=== PATIENT | female | born 1940 | race Caucasian/White ===

== ENCOUNTER 2019-05-21 12:13 | Emergency (ER) | payer MEDICARE, OTHER ==
[~2019-05-21] VITALS: Ht 154.9 cm; Wt 49.9 kg
[~2019-05-21 12:13] MED LIST: [UNRECOGNIZED DRUG - OTHER] MT
[2019-05-21] MEDS ORDERED: ACETAMINOPHEN 325 MG TAB ONE (12:34)
[2019-05-21] MEDS ORDERED: ACETAMINOPHEN 325 MG TAB PO ONE (12:45)
--- NOTE | 2019-05-21 13:26 | Diagnostic Imaging Report ---
CT BRAIN [facility] HISTORY: Fall COMPARISON: None. Technique: Noncontrast axial scans were obtained from skull base to the vertex. Coronal and sagittal reconstructions obtained from the axial data. One or more of the following dose reduction techniques were used: Automated exposure control, adjustment of the mA and/or kV according to patient size, and/or utilization of iterative reconstruction technique. DISCUSSION: Scalp/Skull: Unremarkable. Brain sulci: Mildly prominent. Ventricles: Compensatory dilatation. Extra-axial spaces: No masses or fluid collections. Carotid siphon calcifications are present. Parenchyma: Small dystrophic calcification in the right adhikari radiata is present. Mild bilateral deep white matter hypodensity is likely chronic microvascular ischemic change. Otherwise, no masses, hemorrhage, or large vascular territory acute infarct. Dural sinuses: No abnormal densities. Sellar/Suprasellar region: Intact. Skull base: Intact. Incidental findings: Minimal scattered paranasal sinus mucosal thickening. IMPRESSION: 1. No acute intracranial abnormalities. 2. Mild supratentorial chronic microvascular ischemic change. Mild generalized cerebral volume loss. 3. Small right adhikari radiata calcification may be related to remote infection/inflammation or cavernous malformation. Signed by: Dr. Sebastian Coronel M.D. on 05/21/2019 1:24 PM
[2019-05-21] MEDS ORDERED: TETANUS/DIPHTHERIA TOX ADULT 0.5 ML SYR IM ONE (13:30)
--- NOTE | 2019-05-21 13:31 | Diagnostic Imaging Report ---
CT MAX/FACPARANASA [facility] HISTORY: Fall COMPARISON: None. TECHNIQUE: Axial CT images through the face were obtained without contrast. Coronal/sagittal reformations were created. One or more of the following dose reduction techniques were used: Automated exposure control, adjustment of the mA and/or kV according to patient size, and/or utilization of iterative reconstruction technique. DISCUSSION: Left submental subcutaneous fat stranding is present. A few punctate cutaneous hyperdensities in this region may be foreign bodies/debris. Minimally displaced bilateral nasal bone and maxillary frontal process fractures may be old. Small cerclage wire is seen along the left nasal bone. Otherwise, no acute fracture is seen. There are mild to moderate degenerative changes throughout the spine. The orbits are intact. Intraorbital contents are grossly unremarkable. There is minimal scattered bilateral paranasal sinus mucosal thickening. Otherwise, the visualized soft tissues are grossly unremarkable. IMPRESSION: 1. Minimally displaced bilateral nasal bone and maxillary frontal process fractures may be old. Small cerclage wire is seen along the left nasal bone. 2. Otherwise, no acute osseous abnormality. 3. Left submental subcutaneous fat stranding; a few punctate cutaneous hyperdensities in this region may be foreign bodies/debris. Signed by: Dr. Sebastian Coronel M.D. on 05/21/2019 1:29 PM
[2019-05-21] MEDS ORDERED: TETANUS/DIPHTHERIA TOX ADULT 0.5 ML SYR ONE (13:37)
--- NOTE | 2019-05-21 13:47 | Diagnostic Imaging Report ---
EXAMINATION: CXR 1 W - HOP INDICATION: Trauma COMPARISON: None FINDINGS: LINES/TUBES:None LUNGS:The lungs are mildly hyperinflated. Biapical pleural parenchymal thickening/scarring. No focal consolidation or pulmonary edema. Subcentimeter right lower lobe calcified granuloma. PLEURA:No pleural effusion or pneumothorax. MEDIASTINUM:The cardiomediastinal silhouette appears normal in size and shape. Atherosclerotic calcifications of the thoracic aorta. BONES/SOFT TISSUES:No acute osseous injury. ABDOMEN:No free air under the diaphragm. IMPRESSION: Mildly hyperinflated lungs. No focal pneumonia or pulmonary edema. Signed by: Hardeep Carrion MD on 05/21/2019 1:44 PM
[2019-05-21] MEDS ORDERED: AZITHROMYCIN250 MG PO (14:04)
[2019-05-21 14:05] VITALS: BP 137/88
== END 2019-05-21 14:12 | disposition home or self-care (01) ==
LOC: FSED 12:13
DX: R55 Syncope and collapse (principal); S01.81XA Laceration without foreign body of other part of head, initial encounter; W01.0XXA Fall on same level from slipping, tripping and stumbling without subsequent striking against object, initial encounter; Y92.008 Other place in unspecified non-institutional (private) residence as the place of occurrence of the external cause
CPT/HCPCS: 70450; 70486; 71045; 80053; 83518; 85025; 87400; 90471; 90714; 93005; 99284

== ENCOUNTER 2019-09-30 10:00 | Outpatient (RCR) | payer MEDICARE, OTHER ==
[~2019-09-30 10:00] MED LIST changes: +AZITHROMYCIN250 MG PO
== END 2019-10-01 ==
LOC: PT 10:00
PROVIDERS: ATTEND Specialist
DX: S32.050A Wedge compression fracture of fifth lumbar vertebra, initial encounter for closed fracture (principal); M54.5 Low back pain; M62.81 Muscle weakness (generalized); R26.2 Difficulty in walking, not elsewhere classified; M53.86 Other specified dorsopathies, lumbar region

== ENCOUNTER 2019-10-30 11:57 | Outpatient (RCR) | payer MEDICARE, OTHER ==
--- NOTE | 2019-10-23 17:43 | NUR ---
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 Pt reported h/o GERD. No other significant past medical history provided. Pt stated that her voice has become increasingly hoarse with decreased volume over the past few months. When asked, pt agreed that she frequently clears her throat, wakes up with a sour taste in her mouth, occasionally chokes on food and liquids, has a globus sensation, and experiences vocal fatigue. 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 She stated that her throat often feels tight and tense. She denied consumption of caffeine and does not smoke. Pt does not take medications for reflux but instead has a holistic medicine approach and uses licorice to control her reflux. Pt Goal: to sound normal again. Laryngeal Examination: Pt appears to have larynx at midline with unrestricted movement and normal elevation. Minimal muscle tension was noted in the laryngeal area, glossal area, and the sternocleidomastoid area. Gentle palpation of temples, jaw, shoulders, neck, strap muscles, and larynx resulted in no discomfort or pain. Hearing: Appeared to be WFL. Objective Measurements: Average Range Normal Sustained Vowel 71 dB 70-71 dB 80 dB High/Low Frequency High: 361 Hz Lo: 208 Hz 218-361 Hz 150-350 Hz Max Sustained Phonation 2.5 seconds 1-2 seconds 10-20 seconds Perceptual Measure: Ms. Mooney feels her vocal quality is consistently scratchy with low volume. When fatigued she must strain to produce a voice loud enough for others to understand. 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 Oral Motor Exam: An oral motor speech exam revealed structures and function of speech mechanism to be WFL. Education: Ms. Mooney was educated regarding basic anatomy and physiology of the vocal cords. Vocal hygiene and reflux precautions were reviewed in extensive detail. Treatment/Stimulability: When cued, Ms. Mooney increased her vocal loudness in conversation from 64 dB to 70 dB. Various techniques to alter the way Ms. Mooney used her voice were attempted to assess for improved vocal quality and stimulability to therapeutic stimuli. Pt demonstrated good stimulability and was able to produce vowel sounds with clear vocal quality. Treatment techniques were introduced and home program assigned. Impressions: Ms. 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 This disorder decreases her ability to participate in activities of daily living, activities she enjoys, and her occupation. It also decreases her quality of life. Ms. Mooney would benefit from voice therapy to improve functional use of voice for improved vocal quality. Prognosis: Favorable for improved vocal quality secondary to a high level of motivation to improve and good stimulability to produce clear vocal quality in isolated vowel sounds. Recommendations: 1. Voice therapy 1/week X 4 weeks 2. Vocal hygiene program Book Jogger Goal(s): Patient will restore vocal quality to perform functional demands of conversational and professional speech. Short Term Goals: 1. Pt will follow vocal hygiene recommendations with independence for improvement in vocal fold health for vocalization. 2. Pt will implement gentle use of voice with easy onset exercises with independence. 3. Pt will complete exercises to increase loudness of speech without compromising functional and appropriate use of vocal cords with independence. 4. Pt will complete home exercise program of stretches and practice of therapeutic stimuli with independence. 5. Pt will improve maximum phonation time to 10 seconds. 6. Pt will increase sustained ah to an average of 80 dB while maintaining good vocal quality. Thank you for including me in the care of your patient. Please do not hesitate to contact me at [phone] should you have any questions regarding this evaluation or the plan of care. Radha Archibald M.A. CCC-HEADMASTER/MISTRESS Date of Session: 10/23/19 Analysis of Voice and Resonance X 63 minutes NOMS Voice Level 4
== END 2019-11-01 ==
LOC: PT 11:57
PROVIDERS: ATTEND Specialist
DX: R49.0 Dysphonia (principal); S32.050A Wedge compression fracture of fifth lumbar vertebra, initial encounter for closed fracture; M62.81 Muscle weakness (generalized); R26.2 Difficulty in walking, not elsewhere classified; M54.5 Low back pain

== ENCOUNTER 2019-11-13 12:06 | Outpatient (RCR) | payer MEDICARE, OTHER ==
[2019-11-22] MEDS ORDERED: ARMOUR THYROID60 MG PO (04:27)
[2019-11-23] MEDS ORDERED: AMLODIPINE BESYL5 MG PO (17:52)
== END 2019-12-02 ==
LOC: PT 12:06
PROVIDERS: ATTEND Specialist
DX: S32.050D Wedge compression fracture of fifth lumbar vertebra, subsequent encounter for fracture with routine healing (principal); M54.5 Low back pain; M62.81 Muscle weakness (generalized); R26.2 Difficulty in walking, not elsewhere classified
CPT/HCPCS: 97139

== ENCOUNTER 2019-11-21 18:22 | Observation (INO) | payer MEDICARE, OTHER ==
[~2019-11-21] VITALS: Ht 154.9 cm; Wt 45.4 kg
[2019-11-21] MEDS ORDERED: LABETALOL HCL 5 MG/ML 20ML VIAL IV STA (19:06)
[2019-11-21] MEDS ORDERED: LABETALOL HCL 0 ML ONE (19:29)
[2019-11-21] MEDS ORDERED: LABETALOL HCL 20 ML ONE (19:30)
--- OUTSIDE RECORDS SUMMARY | 2019-11-21 19:56 | XMS REPORT | Continuity of Care Document ---
Author Author [facility] t Organization [facility] Address [address] [place] [address] Phone Unavailable Care Team Providers Care Prompt Care Rn Name Role Phone CAYETANO BAY, MD CAN PCP COREY HARRIS Unavailable Payers Payer Name Policy Type Policy Number Effective Date Expiration Date S ernie [employer] Medicare Sup [id number] 2018 00:00:00 [facility] Medicare A & B [id number] 2006 00:00:00 [facility] Problems Condition Name Condition Details Condition Category Status Onset Date Resolution Date Last Treatment Date Treating Clinician Comments Source Problem Condition Active [facility] Hypothyroidism Hypo thyroidism Active 05/29/2013 [facility] Problem Active 2013-05-29 17:14:08 M maura Gamble Allergies, Adverse Reactions, Alerts Allergy Name Allergy Type Status Severity Reaction(s) Onset Date Inacti ve Date Treating Clinician Comments Source Not Known Not Known Active Eddie Gamble Family History Family Member Diagnosis Comments Start Date Stop Date Source Unknown Family Member Family History 2013-05-29 17:14:08 2 17:14:08 Poli Gamble Social History Social Habit Start Date Stop Date Quantity Comments Source Social History 2013-05-29 17:14:08 2013-05-29 17:14:08 Poli Gamble Sex Assigned At 1940 00:00:00 1940 00:00:00 Female [facility] Medications Ordered Medication Name Filled Medication Name Start Date Stop Da te Current Medication? Ordering Clinician Indication Dosage Frequency Signature (SIG) Comments Components Source Azithromycin (Z-Milan) 250 Mg TABLET Azithromycin (Z-Milan) 250 Mg TABLET 2019-05-21 13:04:00 Yes 1 As Directed [facility] Nature Thyroid 65 MG TABS 2013-05-29 17:14:08 Yes (Active) Poli Gamble Thyroid,Pork (Nature-Throid) 65 Mg TABLET Thyroid,Pork (Nature-Throid) 65 Mg TABLET Yes .5 Daily [facility] Vital Signs Vital Name Observation Time Observation Value Comments Source Body Temperature 2019-05-21 13:05:00 98.0 [degF] [facility] Procedures Procedure Date / Time Performed Performing Clinician Sourc e RPR F/E/E/N/L/M 2.6-5.0 CM 2019-05-21 00:00:00 [facility] Encounters Start Date/Time End Date/Time En[facility] Encounter ID Source 2019-10-30 11:57:00 2019-11-01 23:59:00 Discharged Recurring [facility] [id number] [facility] 2019-09-13 08:05:00 2019-10-01 23:59:00 Discharged [facility] [id number] [facility] 2019-05-21 11:13:00 2019-05-21 13:12:00 Departed Emergency Room 1 COREY HARRIS [facility] [id number] CH I [facility] 2013-05-29 11:14:09 2013-05-29 11:14:08 Outpatient IE IE [id number] Results Test Description Test Time Test Comments Results Result Comments Source CXR 1 VEW - HOPD 2019-05-21 13:43:00 [facility] [address] [place] [address] Patient Name: VAL ALAS MR #: [id number] : 1940 Age/Sex: 79/F Req #: [id number] Adm Physician: Ordered by: COREY HARIRS MD Report #: [id number] Location: [facility] Room/Bed: Procedure: [id number] [facility] Exam Date: 05/21/19 Exam Time: 1308 REPORT STATUS: Signed EXAMINATION: CXR 1 [facility] INDICATION: Trauma COMPARISON: None FINDINGS: LINES/TUBES:None LUNGS:The lungs are mildly hyperinflated. Biapical pleural parenchymal thickening/scarring. No focal consolidation or pulmonary edema. Subcentimeter right lower lobe calcified granuloma. PLEURA:No pleural effusion or pneumothorax. MEDIASTINUM:The cardiomediastinal silhouette appears normal in size and shape. Atherosclerotic calcifications of the thoracic aorta. BONES/SOFT TISSUES:No acute osseous injury. ABDOMEN:No free air under the diaphragm. IMPRESSION: Mildly hyperinflated lungs. No focal pneumonia or pulmonary edema. Signed by: Brendon Quijano MD on 05/21/2019 1:44 PM Dictated By: BRENDON QUIJANO MD 1344 Transcribed By: JOE on 05/21/19 1344 COPY TO: COREY HARRIS MD CT [facility] 2019-05-21 13:24:00 [place] [address] Patient Name: VAL ALAS MR #: [id number] : 1940 Age/Sex: 79/F Req #: [id number] Adm Physician: Ordered by: COREY HARRIS MD Report #: [id number] Location: [facility] Room/Bed: Procedure: [id number] HOPD/CT MAX/FACPARANASA SIN WO-HOPD Exam Date: 05/21/19 Exam Time: 1308 REPORT STATUS: Signed CT MAX/FACPARANASA SIN WO- HOPD HISTORY: Fall COMPARISON: None. TECHNIQUE: Axial CT images through the face were obtained without contrast. Coronal/sagittal reformations were created. One or more of the following dose reduction techniques were used: Automated exposure control, adjustment of the mA and/or kV according to patient size, and/or utilization of iterative reconstruction technique. DISCUSSION: Left submental subcutaneous fat stranding is present. A few punctate cutaneous hyperdensities in this region may be foreign bodies/debris. Minimally displaced bilateral nasal bone and maxillary frontal process fractures may be old. Small cerclage wire is seen along the left nasal bone. Otherwise, no acute fracture is seen. There are mild to moderate degenerative changes throughout the spine. The orbits are intact. Intraorbital contents are grossly unremarkable. There is minimal scattered bilateral paranasal sinus mucosal thickening. Otherwise, the visualized soft tissues are grossly unremarkable. IMPRESSION: 1. Minimally displaced bilateral nasal bone and maxillary frontal process fractures may be old. Small cerclage wire is seen along the left nasal bone. 2. Otherwise, no acute osseous abnormality. 3. Left submental subcutaneous fat stranding; a few punctate cutaneous hyperdensities in this region may be foreign bodies/debris. Signed by: Dr. Sebastian Coronel M.D. on 05/21/2019 1:29 PM Dictated By: SEBASTIAN CORONEL MD 1329 Transcribed By: JOE on 05/21/19 1329 COPY TO: COREY HARRIS MD CT BRAIN WO-HOPD 2019-05-21 13:21:00 [place] [address] Patient Name: VAL ALAS MR #: [id number] : 1940 Age/Sex: 79/F Req #: [id number] [facility] Physician: Ordered by: COREY HARRIS MD Report #: [id number] Location: [facility] Room/Bed: Procedure: [id number] HOPD/CT BRAIN WO-HOPD Exam Date: 05/21/19 Exam Time: 1308 REPORT STATUS: Signed CT BRAIN WO-HOPD HISTORY: Fall COMPARISON: None. Technique: Noncontrast axial scans were obtained from skull base to the vertex. Coronal and sagittal reconstructions obtained from the axial data. One or more of the following dose reduction techniques were used: Automated exposure control, adjustment of the mA and/or kV according to patient size, and/or utilization of iterative reconstruction technique. DISCUSSION: Scalp/Skull: Unremarkable. Brain sulci: Mildly prominent. Ventricles: Compensatory dilatation. Extra-axial spaces: No masses or fluid collections. Carotid siphon calcifications are present. Parenchyma: Small dystrophic calcification in the right adhikari radiata is present. Mild bilateral deep white matter hypodensity is likely chronic microvascular ischemic change. Otherwise, no masses, hemorrhage, or large vascular territory acute infarct. Dural sinuses: No abnormal densities. Sellar/Suprasellar region: Intact. Skull base: Intact. Incidental findings: Minimal scattered paranasal sinus mucosal thickening. IMPRESSION: 1. No acute intracranial abnormalities. 2. Mild supratentorial chronic microvascular ischemic change. Mild generalized cerebral volume loss. 3. Small right adhikari radiata calcification may be related to remote infection/inflammation or cavernous malformation. Signed by: Dr. Sebastian Coronel M.D. on 05/21/2019 1:24 PM Dictated By: SEBASTIAN CORONEL MD 1324 Transcribed By: JOE on 05/21/19 1324 COPY TO: COREY HARRIS MD
--- OUTSIDE RECORDS SUMMARY | 2019-11-21 19:56 | XMS REPORT | Continuity of Care Document ---
Author Author [facility] Organization [employer] Address Unknown Phone Unavailable Care Team Providers Care Equipment Validation Engineer Name Role Phone Keep[employer] Information [employer] Unavailable Un available Problems Problem Status Onset Date Classification Date Reported Comments Source Hypothyroidism Active 05/29/2013 [facility] Medications Medication Details Route Status Patient Instructions Ordering Provider Order Date Source Nature Thyroid 65 MG TABS (Ac tive) Active [facility] Allergies, Adverse Reactions, Alerts Substance Category Reaction Severity Reaction type Status Date Reported Comments Source Not Known [facility] Immunizations No Data Provided for This Section Results No Data Provided for This Section Pathology Reports No Data Provided for This Section Diagnostic Reports No Data Provided for This Section Consultation Notes No Data Provided for This Section Discharge Summaries No Data Provided for This Section History and Physicals No Data Provided for This Section Vital Signs No Data Provided for This Section Encounters Location Location Details Encounter Type Encounter Number Reason For Visit Attending Provider ADM Date DC Date Status Source AUDIT [id number] 05/29/2013 05/29/2013 [facility] Procedures No Data Provided for This Section Assessment and Plan No Data Provided for This Section Plan of Care No Data Provided for This Section Social History Social History Date Source Marital History - (Active ) Never A Smoker (Active) Never Drank Alcohol (Active) Occupation: Retired (Active) 05/29/2013 [facility] Family History Value Date S ource Maternal history of Hypertension (V17.49 ); (Active) Maternal history of Diabetes Mellitus (V18.0); (Active) Paternal history of Lung Cancer (V16.1); (Active) 05/29/2013 [facility] Advance Directives Order Name Results Value Date Source Advance Directives Advance Dir ectives No Advance Directives available. 05/29/2013 [facility] Functional Status No Data Provided for This Section
--- OUTSIDE RECORDS SUMMARY | 2019-11-21 19:56 | XMS REPORT ---
Author Author VAL Molina Organization Unknown Address Unknown Phone Care Team Providers Care Ornamental Metal Fabricator Apprentice Name Role Phone Pat Molina PP Reason for Referral No Reason for Referral was given. History of Present Illness No HPI available. Problems * Normal Routine History And Physical Senior Citizen (65-80) (V70.0); ( Active) * Hypothyroidism (244.9); (Active) Medication * Nature Thyroid 65 MG TABS; TAKE 1 TABLET DAILY. (Active) Allergies and Adverse Reactions * Not Known Past Medical History * History of Osteoporosis (733.00); (Resolved) * History of Anemia (285.9); (Resolved) * History of History Of 9 Previous Pregnancies (V61.5); (Resolved) * History of Vitamin B12 Deficiency (266.2); (Resolved) Procedures Procedure Procedure Date Date Completed Status Tonsillectomy With Adenoidectomy - - Resolved Appendectomy - - Resolved Cholecystectomy - - Resolved Hysterectomy - - Resolved Colon Surgery - - Resolved Family History * Maternal history of Hypertension (V17.49); (Active) * Maternal history of Diabetes Mellitus (V18.0); (Active) * Paternal history of Lung Cancer (V16.1); (Active) Social History * Marital History - (Active) * Never A Smoker (Active) * Never Drank Alcohol (Active) * Occupation: Retired (Active) Advance Directives * No Advance Directives available. Encounters * AUDIT 05/29/2013
--- NOTE | 2019-11-21 20:06 | Diagnostic Imaging Report ---
Exam: Head CT without contrast History: Blurry vision, headache Comparison studies: Head CT 05/21/2019 Technique: Axial images were obtained from the skull base to the vertex. Coronal and sagittal images reconstructed from the axial data. Dose modulation, iterative reconstruction, and/or weight based adjustment of the mA/kV was utilized to reduce the radiation dose to as low as reasonably achievable. Radiation dose: Total DLP: 969.14 mGy*cm. Estimated effective dose: DLP x 0.015 Intravenous contrast: None Findings: Scalp: No abnormalities. Bones: No fractures, blastic or lytic lesions. Brain sulci: Mildly prominent, unchanged. Ventricles: Normal in size and configuration. No hydrocephalus. Extra-axial spaces: No masses, no fluid collection. Parenchyma: Unchanged chronic small dystrophic calcification the right adhikari radiata without surrounding edema or mass effect which is likely sequela of remote infection/inflammation. A few subtle hypodensities in the supratentorial white matter are nonspecific but are most compatible with chronic microvascular ischemic changes. No other mass. No acute hemorrhage or acute or chronic cortical insults. Sellar/suprasellar region: No abnormalities. Craniocervical junction: Patent foramen magnum. No Chiari one malformation. Incidental findings: Small nonspecific right sphenoid sinus secretions. IMPRESSION: No acute intracranial abnormalities. Chronic findings: 1. Mild generalized parenchymal volume loss. 2. Mild microvascular ischemic changes. 3. Small chronic right adhikari radiata dystrophic calcification. Signed by: Dr. Hammad Dickerson M.D. on 11/21/2019 8:02 PM
[2019-11-21] MEDS ORDERED: SODIUM CHLORIDE FLUSH 10 ML SYR INJ PRN (21:15)
[2019-11-21] MEDS ORDERED: ONDANSETRON HCL INJ 2MG/ML 2ML 2 MG/ML VIAL IV PRN (21:15)
[2019-11-21] MEDS ORDERED: LABETALOL HCL 20 MG/4 ML SYRINGE IV PRN (21:15)
--- OUTSIDE RECORDS SUMMARY | 2019-11-21 21:18 | XMS REPORT | Continuity of Care Document ---
Author Author [facility] t Organization [facility] Address [address] [place] [address] Phone Unavailable Care Team Providers Care Auctioneer Tobacco Name Role Phone CAYETANO BAY, MD CAN PCP Jayson PASCUAL Attphys Unavailable COREY HARRIS Attphys Unavailable Payers Payer Name Policy Type Policy Number Effective Date Expiration Date S ernie [employer] Medicare Sup [id number] 2018 00:00:00 [facility] Medicare A & B [id number] 2006 00:00:00 [facility] Problems Condition Name Condition Details Condition Category Status Onset Date Resolution Date Last Treatment Date Treating Clinician Comments Source Problem Condition Active [facility] Hypothyroidism Hypo thyroidism Active 05/29/2013 [facility] Problem Active 2013-05-29 17:14:08 M maura [...] Assigned At 1940 00:00:00 1940 00:00:00 Female [facility] Medications Ordered Medication Name Filled Medication Name Start Date Stop Da te Current Medication? Ordering Clinician Indication Dosage Frequency Signature (SIG) Comments Components Source Azithromycin (Z-Milan) 250 Mg TABLET Azithromycin (Z-Milan) 250 Mg TABLET 2019-05-21 13:04:00 Yes 1 As Directed [facility] Nature Thyroid 65 MG TABS 2013-05-29 17:14:08 Yes (Active) Poli Gamble Thyroid,Pork (Nature-Throid) 65 Mg TABLET Thyroid,Pork (Nature-Throid) 65 Mg TABLET Yes .5 Daily [facility] Vital Signs Vital Name Observation Time Observation Value Comments Source Body Temperature 2019-05-21 13:05:00 98.0 [degF] [facility] Procedures Procedure Date / Time Performed Performing Clinician Sourc e RPR F/E/E/N/L/M 2.6-5.0 CM 2019-05-21 00:00:00 [facility] Encounters Start Date/Time End Date/Time Encounter Type Admission Type Att[facility] Care Department Encounter ID Source 2019-10-30 11:57:00 2019-11-01 23:59:00 Discharged [facility] [id number] [facility] 2019-09-13 08:05:00 2019-10-01 23:59:00 Discharged [facility] [id number] [facility] 2019-05-21 11:13:00 2019-05-21 13:12:00 Departed Emergency Room 1 COREY HARRIS [facility] [id number] CH I [facility] 2013-05-29 11:14:09 2013-05-29 11:14:08 Outpatient [facility]IE [id number] [id number] Results Test Description Test Time Test Comments Results Result Comments Source CT BRAIN WO-HOPD 2019-11-21 19:49:00 [facility] [address] [address] Patient Name: VAL ALAS MR #: [id number] : 1940 Age/Sex: 79/F Req #: [id number] [facility] Physician: Ordered by: FREDERIC PASCUAL MD Report #: [id number] Location: [facility] Room/Bed: Procedure: [id number] HOPD/CT BRAIN WO-HOPD Exam Date: 11/21/19 Exam Time: 1941 REPORT STATUS: Signed Exam: Head CT without contrast History: Blurry vision, headache Comparison studies: Head CT 05/21/2019 Technique: Axial images were obtained from the skull base to the vertex. Coronal and sagittal images reconstructed from the axial data. Dose modulati on, iterative reconstruction, and/or weight based adjustment of the mA/kV was utilized to reduce the radiation dose to as low as reasonably achievable. Radiation dose: Total DLP: 969.14 mGy*cm. Estimated effective dose: DLP x 0.015 Intravenous contrast: None Findings: Scalp: No abnormalities. Bones: No fractures, blastic or lytic lesions. Brain sulci: Mildly prominent, unchanged. Ventricles: Normal in size and configuration. No hydrocephalus. Extra-axial spaces: No masses, no fluid collection. Parenchyma: Unchanged chronic small dystrophic calcificatio n the right adhikari radiata without surrounding edema or mass effect which is likely sequela of remote infection/inflammation. A few subtle hypodensities in the supratentorial white matter are nonspecific but are most compatible with chronic microvascular ischemic changes. No other mass. No acute hemorrhage or acute or chronic cortical insults. Sellar/suprasellar region: No abnormalities. Craniocervical junction: Patent foramen magnum. No Chiari one malformation. Incidental findings: Small nonspecific right sphenoid sinus secretions. IMPRESSION: No acute intracranial abnormalities. Chronic findings: 1. Mild generalized parenchymal volume loss. 2. Mild microvascular ischemic changes. 3. Small chronic right adhikari radiata dystrophic calcification. Signed by: Dr. Roger Dickerson M.D. on 11/21/2019 8:02 PM Dictated By: ROGER DICKERSON MD 01 Transcribed By: JOE on 11/21/192001 COPY TO: FREDERIC PASCUAL MD CXR 1 [facility] 2019-05-21 13:43:[address] [address] Patient Name: VAL ALAS MR #: [id number] : 1940 Age/Sex: 79/F Req #: [id number] Adm Physician: Ordered by: COREY HARRIS MD Report #: [id number] Location: [facility] Room/Bed: Procedure: [id number] HOPD/CXR 1 [facility] Exam Date: 05/21/19 Exam Time: 1308 REPORT STATUS: Signed EXAMINATION: CXR 1 [facility] INDICATION: Trauma COMPARISON: None FINDINGS: LINES/TUBES:None LUNGS:The [...] MD 1344 Transcribed By: JOE on 05/21/19 134 COPY TO: COREY HARRIS MD CT MAX/FACPARANASA SIN WO-HOPD 2019-05-21 13:24:00 [address] [address] Patient Name: VAL ALAS MR #: [id number] : 1940 Age/Sex: 79/F Req #: [id number] Adm Physician: Ordered by: COREY HARRIS MD Report #: [id number] Location: [facility] Room/Bed: Procedure: [id number] HOPD/CT MAX/FACPARANASA SIN WO-HOPD Exam Date: 05/21/19 [...] on 05/21/2019 1:29 PM Dictated By: SEBASTIAN CROONEL MD 1329 Transcribed By: JOE on 05/21/19 1329 COPY TO: COREY HARRIS MD CT BRAIN WO-HOPD 2019-05-21 13:21:00 [facility] [address] [place] [address] Patient Name: VAL ALAS MR #: [id number] : 1940 Age/Sex: 79/F Req #: [id number] Adm Physician: Ordered by: COREY HARRIS MD Report #: [id number] Location: [facility] Room/Bed: Procedure: [id number] HOPD/CT BRAIN WO-HOPD Exam Date: 05/21/19 Exam [...]
--- OUTSIDE RECORDS SUMMARY | 2019-11-21 21:18 | XMS REPORT | Continuity of Care Document ---
Author Author [facility] [employer] Address Unknown Phone Unavailable Care Team Providers Care Hatchery Worker Name Role Phone [employer] Unavailable Un available Problems Problem Status Onset Date Classification Date Reported Comments Source Hypothyroidism Active 05/29/2013 [facility] Medications Medication Details Route Status Patient Instructions Ordering Provider Order Date Source Nature Thyroid 65 MG TABS (Ac tive) Active [facility] Allergies, Adverse Reactions, Alerts Substance Category Reaction Severity Reaction type Status Date Reported Comments Source Not Known [facility] Immunizations No Data Provided for This [...] ADM Date DC Date Status Source AUDIT [id number] 05/29/2013 05/29/2013 [facility] Procedures No Data Provided for This Section Assessment and Plan No Data Provided for This Section Plan of Care No Data Provided for This Section Social History Social History Date Source Marital History - (Active ) Never A Smoker (Active) Never Drank Alcohol (Active) Occupation: Retired (Active) 05/29/2013 [facility] Family History Value Date S ource Maternal history of Hypertension (V17.49 ); (Active) Maternal history of Diabetes Mellitus (V18.0); (Active) Paternal history of Lung Cancer (V16.1); (Active) 05/29/2013 [facility] Advance Directives Order Name Results Value Date Source Advance Directives Advance Dir ectives No Advance Directives available. 05/29/2013 [facility] Functional Status No Data Provided for This Section
--- NOTE | 2019-11-21 22:09 | Emergency Department Note ---
History of Present Illnes History of Present Illness Chief Complaint: General Medicine Complaints History of Present Illness This is a 79 year old female, with a history of Hypothyroidism who presents with acute onset blurred vision, possible loss of visual little with "letter's and numbers missing" in what she was looking at, tingling in the right arm and then the right foot. Patient states that the visual changes have resolved, and that the right hand numbness and right foot numbness lasted "for just a few minutes," and also resolved. She states that the toes of both feet "feel tingly". She has a 3 out of 10 frontal headache and mild nausea. She declines to take anything for her headache. She has had no vomiting, chest pain, or shortness of breath. Patient denies any focal weakness, ataxia, slurred speech, or confusion. Patient checked her blood pressure shortly after the onset of her symptoms, and she states that her blood pressure was high, with a systolic reading in the 190s. She contacted her son, who brought her to the ED for further evaluation. Patient states that she had a similar episode a number of years ago, when her blood pressure went up and she experienced some paresthesias. She states that she was placed on blood pressure medication at that time, but it reportedly "dropped her blood pressure too low," and that medication was discontinued. Patient has no history of stroke or TIA. Historian: Patient Arrival Mode: Car Center Consultant Required: No Onset (how long ago): minute(s) (90) Location: [facility] Quality: numbness and tingling Radiation: Reports non-radiation; Denies back, Denies neck Severity: moderate Onset quality: sudden Duration (how long): hour(s) (Symptoms lasted less than 30 minutes, but her blood pressure remained elevated.) Timing of current episode: sporadic Progression: resolved (other than some"tingling" in toes of both feet.) Context: Denies recent illness, Denies recent surgery, Denies trauma/injury, Denies new medications, Denies hx of DVT/PE Relieving factors: none Exacerbating factors: none Associated symptoms: Reports headaches (mild, frontal, 3/10;), Reports nausea/vomiting (nausea, without vomiting); Denies confusion, Denies chest pain, Denies cough, Denies fever/chills, Denies shortness of breath, Denies weakness Treatments prior to arrival: none Risk factors: history of HTN Past Medical/Family History Physician Review I have reviewed the patient's past medical and family history. Any updates have been documented here. Past Medical History Recent Fever: No Clinical Suspicion of Infectio: No New/Unexplained Change in Ment: No Past Medical History: Hypertension, Hypothyroidism Other Medical History: DIVERTICULITIS Past Surgical History: Cholecysctectomy, Appendectomy, Hysterectomy, T&A, Colon Resection Other Surgery: COLON RESECTION HYSTERECTOMY APPENDIX TONSILS CHOLECYSTECTOMY Social History Smoking Cessation: Never Smoker Alcohol Use: None Any Illegal Drug Use: No TB Exposure/Symptoms: No Physically hurt or threatened: No Family History Family history of heart diseas: No Other Last Tetanus: UTD Any Pre-Existing Lines (PICC,: No Is patient up to date on immun: Yes Review of Systems Review of Systems Constitutional: Denies chills, Denies fever EENTM: Reports no symptoms Cardiovascular: Denies chest pain, Denies edema, Denies palpitations, Denies s yncope Respiratory: Denies cough, Denies dyspnea, Denies dyspnea on exertion Gastrointestinal: Reports nausea; Denies abdominal pain, Denies constipation, Denies diarrhea, Denies vomiting Genitourinary: Denies dysuria, Denies frequency Musculoskeletal: Denies back pain, Denies neck pain Integumentary: Denies change in color, Denies rash Neurological: Reports headache (frontal;), Reports numbness (transient RUE, RLE, numbness and tingling;), Reports paresthesia (toes of both feet;); Denies weakness Psychological: Reports no symptoms Review of other systems: All other systems negative Physical Exam Related Data Allergies: Coded Allergies: No Known Drug Allergies (Verified Allergy, Unknown, 08/15/07) azithromycin (Verified Allergy, Unknown, 11/21/19) ciprofloxacin (Verified Allergy, Unknown, 11/21/19) clindamycin (Verified Allergy, Unknown, 11/21/19) doxycycline (Verified Allergy, Unknown, 11/21/19) nitrofurantoin (Verified Allergy, Unknown, 11/21/19) sulfamethoxazole (Verified Allergy, Unknown, 11/21/19) trimethoprim (Verified Allergy, Unknown, 11/21/19) Triage Vital Signs Vital Signs Date Time Temp Pulse Resp B/P (MAP) Pulse Ox O2 Delivery O2 Flow Rate FiO2 11/21/19 18:55 99.4 110 18 223/109 96 Room Air Vital signs reviewed: Yes Physical Exam CONSTITUTIONAL Constitutional: Present well-developed, Present well-nourished; Absent distressed, Absent ill appearing HENT HENT: Present normocephalic, Present atraumatic, Present oropharynx clear/moist, Present nose normal; Absent rhinorrhea HENT L/R: Present left ext ear normal, Present right ext ear normal EYES Eyes: Reports PERRL, Reports conjunctivae normal NECK PULMONARY Pulmonary: Present effort normal, Present breath sounds normal CARDIOVASCULAR Cardiovascular: Present regular rhythm, Present heart sounds normal, Present capillary refill normal, Present normal rate GASTROINTESTINAL Abdominal: Present soft, Present nontender, Present bowel sounds normal; Absent tender, Absent guarding GENITOURINARY Genitourinary: Present exam deferred SKIN Skin: Present warm, Present dry; Absent erythema, Absent rash MUSCULOSKELETAL Musculoskeletal: Present ROM normal; Absent edema, Absent tenderness NEUROLOGICAL Neurological: Present alert, Present oriented x 3, Present no gross motor or sensory deficits; Absent cranial nerve deficit, Absent sensory deficit, Absent abnormal DTRs, Absent abnormal coordination, Absent abnormal gait, Absent weakness PSYCHOLOGICAL Psychological: Present mood/affect normal, Present behavior normal Results Laboratory Lab results reviewed: Yes Laboratory comments CBC - nl; CMP - nl except for gluc = 129 mg/dl; BUN = 24, AST = 42; Cardiacs - nl; UA - nl except for trace leuk; Imaging Imaging results reviewed: Yes Impressions [address] [address] Patient Name: VAL ALAS MR #: [id number] : 1940 Age/Sex: 79/F Req #: [id number] Adm Physician: Ordered by: FREDERIC PASCUAL MD Report #: [id number] Location: [facility] Room/Bed: Procedure: [id number] HOPD/CT BRAIN WO-HOPD Exam Date: 11/21/19 Exam Time: 1942 REPORT STATUS: Signed Exam: Head CT without contrast History: Blurry vision, headache Comparison studies: Head CT 05/21/2019 Technique: Axial images were obtained from the skull base to the vertex. Coronal and sagittal images reconstructed from the axial data. Dose modulation, iterative reconstruction, and/or weight based adjustment of the mA/kV was utilized to reduce the radiation dose to as low as reasonably achievable. Radiation dose: Total DLP: 969.14 mGy*cm. Estimated effective dose: DLP x 0.015 Intravenous contrast: None Findings: Scalp: No abnormalities. Bones: No fractures, blastic or lytic lesions. Brain sulci: Mildly prominent, unchanged. Ventricles: Normal in size and configuration. No hydrocephalus. Extra-axial spaces: No masses, no fluid collection. Parenchyma: Unchanged chronic small dystrophic calcification the right adhikari radiata without surrounding edema or mass effect which is likely sequela of remote infection/inflammation. A few subtle hypodensities in the supratentorial white matter are nonspecific but are most compatible with chronic microvascular ischemic changes. No other mass. No acute hemorrhage or acute or chronic cortical insults. Sellar/suprasellar region: No abnormalities. Craniocervical junction: Patent foramen magnum. No Chiari one malformation. Incidental findings: Small nonspecific right sphenoid sinus secretions. IMPRESSION: No acute intracranial abnormalities. Chronic findings: 1. Mild generalized parenchymal volume loss. 2. Mild microvascular ischemic changes. 3. Small chronic right adhikari radiata dystrophic calcification. Signed by: Dr. Roger Dickerson M.D. on 11/21/2019 8:02 PM Dictated By: ROGER DICKERSON MD 01 Transcribed By: JOE on 11/21/192001 COPY TO: FREDERIC PASCUAL MD~ Diagnostics Tests Diagnostic test(s) reviewed: Yes Procedures 12 Lead ECG Interpretation ECG Interpretation : ECG: ECG 1 Center Consultant: Interpreted by ED physician Date: Nov 21, 2019 Time: 21:13 Prior ECG tracings: reviewed Rhythm: sinus rhythm Rate: normal BPM: 84 QRS axis: normal ST segments normal: Yes T waves normal: Yes Other findings: no other findings Clinical Impression: normal ECG Assessment & Plan Medical Decision Making [facility] 20:55 - case discussed with patient's PCP, Dr. Collins, who agreed to admitting patient. Discussed with both patient and her son, Roger Alas, reviewed the results of diagnostic testing, and recommendation for admission to the hospital for close observation of neurologic status, for possible MRI of the brain tomorrow, and to closely monitor blood pressure and treat if needed. The patient's voice understanding the plan, and patient was agreeable to admission. Patient's son - Roger Alas [phone] (pt lives alone) Reassessment Reassessment 23:30 - continue to await tele bed assignment at [facility]. Pt is updated and aware. B/P = 167/83, HR = 74--> this is after one dose of Labetalol 20 mg IV. Assessment & Plan Final Impression: (1) Hypertensive urgency (2) TIA (transient ischemic attack) (3) Hypothyroidism Depart Disposition: ADMITTED Last Vital Signs Date Time Temp Pulse Resp B/P (MAP) Pulse Ox O2 Delivery O2 Flow Rate FiO2 11/21/19 20:00 76 18 170/84 99 Room Air 11/21/19 18:55 99.4 Home Meds Active Scripts Azithromycin (Z-MERI) 250 Mg Tablet, 1 PKG PO DIRECTED, #1 PKG 0 Refills Prov:COREY HARRIS MD 05/21/19 Reported Medications Thyroid,Pork (Nature-Throid) 65 Mg Tablet, 0.5 MT DAILY 08/15/10 Medications in the ED Labetalol HCl 20 mg NOW STAT IV Last administered on 11/21/19at 19:45; Admin Dose 20 MG; Start 11/21/19 at 19:06; Stop 11/21/19 at 19:17; Status DC Labetalol HCl 0 ml @ ud STK-MED ONCE .ROUTE ; Start 11/21/19 at 19:29; Stop 11/21/19 at 19:24; Status DC Labetalol HCl 20 ml @ ud STK-MED ONCE .ROUTE ; Start 11/21/19 at 19:30; Stop 11/21/19 at 19:24; Status DC FREDERIC PASCUAL MD Nov 21, 2019 22:09
[2019-11-22] VITALS (8 sets, daily range): BP systolic 127–171; BP diastolic 80–94
[2019-11-22] MEDS ORDERED: ARMOUR THYROID60 MG PO (04:27)
[2019-11-22 06:34] LABS: BASOPHILS % 0.5 % (0.0-1.0); EOSINOPHILS # (AUTO) 0.1 (0.0-0.4); EOSINOPHILS % 0.9 % (0.0-6.0); HEMATOCRIT 38.3 % (34.2-44.1); HEMOGLOBIN 12.4 g/dL (12.0-16.0); MEAN CORPUSCULAR HEMOGLOBIN 29.5 pg (28-32); MEAN CORPUSCULAR HGB CONC 32.4 g/dL (31-35); MONOCYTES # (AUTO) 0.6 (0.2-0.8); MONOCYTES % 10.2 % (4.4-11.3); PLATELET COUNT 141 x10e3/uL (140-360); RED BLOOD COUNT 4.21 x10e6/uL (3.6-5.1); RED CELL DISTRIBUTION WIDTH 13.1 % (11.7-14.4)
[2019-11-22 06:44] LABS: ANION GAP 12.9 mmol/L (8-16); BLOOD UREA NITROGEN 16 mg/dL (7-26); BUN/CREATININE RATIO 21 (6-25); CALCIUM 9.2 mg/dL (8.4-10.2); CARBON DIOXIDE 26 mmol/L (22-29); CHLORIDE 107 mmol/L (98-107); CREATININE, SERUM 0.77 mg/dL (0.57-1.11); EST GLOMERULAR FILTRATION RATE > 60 ML/MIN (60-); GLUCOSE 97 mg/dL (74-118); POTASSIUM 3.9 mmol/L (3.5-5.1); SODIUM 142 mmol/L (136-145)
--- NOTE | 2019-11-22 07:00 | NUR ---
BEDSIDE SHIFT REPORT RECEIVED FROM THE INTEGRATED CIRCUIT IC LAYOUT DESIGNER RN. EDUCATED PT ABOUT FALL PRECAUTIONS. PT VERBALIZED UNDERSTANDING. CALL LIGHT WITH IN EASY REACH. BED IS LOW AND LOCKED. SIDE RAILS X2. BED ALARM IS ON. ALL SAFETY MEASURES IN PLACE. PT DENIES NEEDS AT THIS TIME.
[2019-11-22] MEDS ORDERED: THYROID 60 MG TAB PO SCH (09:00)
--- NOTE | 2019-11-22 09:00 | NUR ---
PAGED DR. MONTEIRO AND REPORTED PT BP 165/80.
--- NOTE | 2019-11-22 13:35 | NUR ---
provided pastoral visit and prayer. pt expressed peace chaplain Gaurang
[2019-11-22] MEDS: PANTOPRAZOLE SOD 40 MG TABEC PO SCH (15:47)
--- NOTE | 2019-11-22 19:00 | NUR ---
BEDSIDE SHIFT REPORT GIVEN TO THE INDUSTRIAL SPRAYPAINTER RN. PT DENIED FURTHER NEEDS.
[2019-11-22] MEDS: THYROID 60 MG TAB PO SCH (20:01)
[2019-11-23] VITALS: BP 145/78
[2019-11-23 08:00] VITALS: BP 136/74
[2019-11-23 08:15] VITALS: BP 136/74
[2019-11-23] MEDS: PANTOPRAZOLE SOD 40 MG TABEC PO SCH (08:20)
[2019-11-23] MEDS: THYROID 60 MG TAB PO SCH (08:20)
--- NOTE | 2019-11-23 09:00 | NUR ---
dr skaggs to see pt. dr skaggs states he wants echo, mri and doppler ordered stat. states he put orders in computer and to make sure it is done stat
--- NOTE | 2019-11-23 09:52 | Progress Note ---
DATE: SUBJECTIVE: The patient came in with right hand paresthesia and a CT scan was not revealing a stroke. The patient is currently symptomatic. She also came in with hypertensive urgency. Two doses of labetalol have been given. OBJECTIVE: VITAL SIGNS: Temperature today is 97.3, pulse of 63, respirations 17, blood pressure is 145/78, and pulse oximetry of 97% on room air. HEENT: Normocephalic and atraumatic. Pupils are reactive. CVS: S1 and S2 normal. Regular rate and rhythm. ABDOMEN: Soft, nontender, and nondistended. EXTREMITIES: No clubbing, no cyanosis, no edema. NEUROLOGICAL: Sensory and motor functions normal. Cranial nerves normal. LABORATORY VALUES: None done from the . Everything was normal. Chemistries were normal. Serology; adhikari virus is pending. IMAGING STUDIES: Brain CT shows mild generalized parenchymal volume loss, mild microvascular changes and small chronic right adhikari radiata dystrophic calcification. ASSESSMENT AND PLAN: Ms. Lashell Mooney is with: 1. Hyperesthesias and paresthesias, right hand. 2. Hypertensive urgency, which has been resolved. 3. Hypothyroidism. PLAN: MRI of the brain and echocardiogram to be done today. If normal, can be discharged home today. Further recommendation per clinical course. We will continue to monitor the patient, also discharge depending on the radiological studies. MD BLAS PageJ/MODL /[id number]
--- NOTE | 2019-11-23 12:00 | NUR ---
pt sent for mri
[2019-11-23 13:20] VITALS: BP 154/96
--- NOTE | 2019-11-23 13:58 | Diagnostic Imaging Report ---
MRI BRAIN WO HISTORY: TIA COMPARISON: Head CT 11/21/2019 TECHNIQUE: Sagittal T2, axial T2, axial T1, axial T2/FLAIR, axial gradient echo (or susceptibility weighted), coronal T2/FLAIR, and axial diffusion weighted MR images of the brain were obtained without contrast. DISCUSSION: Scalp/bone marrow: Unremarkable. Brain sulci: Prominent. Ventricles: Compensatory dilatation. Extra-axial spaces: No masses or fluid collections. Parenchyma: Scattered T2/FLAIR hyperintense foci throughout the supratentorial white matter are likely chronic microvascular ischemic changes. Otherwise, no mass, hemorrhage, or acute vascular insults. Vessels: Normal flow voids in major arteries and veins. Sellar/Suprasellar region: No abnormalities. Craniocervical junction: No abnormalities. Incidental findings: Mild sphenoid sinus and ethmoid air cell mucosal thickening IMPRESSION: 1. No acute intracranial abnormalities. 2. Mild supratentorial chronic microvascular ischemic change. 3. Mild generalized cerebral volume loss. Signed by: Dr. Sebastian Coronel M.D. on 11/23/2019 2:38 PM
[2019-11-23 16:30] VITALS: BP 149/99
--- NOTE | 2019-11-23 16:46 | NUR ---
dr skaggs notified of pt dbp 99. dr skaggs given mri results. med ordered for bp. dr guerra pt can be dc after giving med. dr guerra for nurse to get pharmacy info from pt so he can call in precriptions
[2019-11-23] MEDS ORDERED: AMLODIPINE BESYLATE 5 MG TAB PO ONE (17:00)
--- NOTE | 2019-11-23 17:47 | NUR ---
dr skaggs notified of pt pharmacy info
[2019-11-23] MEDS ORDERED: AMLODIPINE BESYL5 MG PO (17:52)
== END 2019-11-23 18:45 | disposition home or self-care (01) ==
LOC: FSED 19:30 → ERHOLD 21:04 → MED/SURG3 11-22 03:23
PROVIDERS: ADMIT Internal Medicine; ATTEND Internal Medicine
DX: I16.0 Hypertensive urgency (principal); R20.0 Anesthesia of skin; E03.9 Hypothyroidism, unspecified; G45.9 Transient cerebral ischemic attack, unspecified; Z11.59 Encounter for screening for other viral diseases
CPT/HCPCS: 36415; 70450; 70551; 80048; 80053; 81003; 82553; 84484; 85025; 93005; 93306; 93880; 99284; G0378 ×3; J3490; S0164; U0002

== ENCOUNTER 2019-12-25 12:00 | Outpatient (RCR) | payer MEDICARE, OTHER ==
[~2019-12-25 12:00] MED LIST changes: +AMLODIPINE BESYL5 MG PO; +ARMOUR THYROID60 MG PO
[2019-12-27] MEDS ORDERED: ARMOUR THYROID60 MG PO (13:13)
== END 2020-01-01 ==
LOC: ST 12:00
PROVIDERS: ATTEND Specialist
DX: J38.3 Other diseases of vocal cords (principal)

== ENCOUNTER → 2020-01-01 | Day surgery (SDC) | payer MEDICARE, OTHER ==
[2019-12-27 13:55] LABS: BASOPHILS % 0.6 % (0.0-1.0); EOSINOPHILS # (AUTO) 0.1 (0.0-0.4); HEMATOCRIT 45.6 % (34.2-44.1); HEMOGLOBIN 14.3 g/dL (12.0-16.0); LYMPHOCYTES # (AUTO) 2.1 (1.0-3.2); MEAN CORPUSCULAR HEMOGLOBIN 29.6 pg (28-32); MEAN CORPUSCULAR HGB CONC 31.4 g/dL (31-35); MEAN CORPUSCULAR VOLUME 94.4 fL (81-99); MONOCYTES # (AUTO) 0.4 (0.2-0.8); NEUTROPHILS # (AUTO) 4.5 (2.1-6.9); NEUTROPHILS % 63.1 % (38.7-80.0); PLATELET COUNT 124 x10e3/uL (140-360); RED BLOOD COUNT 4.83 x10e6/uL (3.6-5.1); RED CELL DISTRIBUTION WIDTH 13.2 % (11.7-14.4)
[~2020-01-01] MED LIST changes: +FENTANYL CITRATE/PF 100MCG/2 ML INJ ONE; +GLUCAGON FOR INJ 1 MG VIAL ONE; +HYOSCYAMINE 0.125 MG TAB ONE; +LIDOCAINE HCL 2% LOCAL INJ 5 ML SDV VIAL INJ ONE; +METOCLOPRAMIDE HCL 10 MG/2ML VIAL ONE; +PANTOPRAZOLE 40 MG 10ML VIAL ONE; +PROPOFOL IV EMULSION 10 MG/ML 20 ML VIAL ONE
[2020-01-01 14:25] VITALS: BP 108/82
--- NOTE | 2020-01-01 15:17 | Operative Report ---
DATE OF PROCEDURE: 01/01/2020 SURGEON: Jorje May MD PROCEDURES: EGD with biopsies and colonoscopy with biopsies. INDICATIONS FOR EGD: Upper abdominal pain, worsening acid reflux. INDICATIONS FOR COLONOSCOPY: Lower abdominal pain, personal history of colon polyps. MEDICATIONS: The patient was done under MAC, please see anesthesiologist's note. PROCEDURE IN DETAIL: With the patient in the left lateral decubitus position, a flexible fiberoptic Olympus gastroscope was introduced into the esophagus under direct visualization without any difficulty. There was some patchy erythema noted in distal esophagus. The scope was then advanced with ease into the stomach traversing a small hiatal hernia. Mucosa overlying the antrum and the body revealed some diffuse erythema and moderate to marked edema, and biopsies were obtained and sent to stain for H. pylori. Pylorus was of normal contour and shape, was intubated with ease and the scope was advanced all the way to the second portion of the duodenum. Biopsies were obtained from the proximal second portion and the duodenal bulb to rule out sprue. The scope was then withdrawn back into the stomach and retroflexed, mucosa overlying the fundus and the cardia appeared to be within normal limits. The scope was then straightened out. The stomach was decompressed. The scope was subsequently withdrawn. The patient tolerated the procedure well. IMPRESSION: 1. Distal esophagitis, mild. 2. Small hiatal hernia. 3. Gastritis, biopsied, biopsies sent to stain for Helicobacter pylori. 4. Rule out sprue. PLAN: Follow up histology. Initiate Protonix 40 mg one p.o. q.a.m. before meals. Carafate 1 g p.o. before meals t.i.d. and at bedtime. The patient was then turned around and after adequate lubrication of the anal canal, a flexible fiberoptic Olympus colonoscope was inserted into the rectum with ease and advanced all the way to the cecum. It was then withdrawn slowly. Mucosa overlying the cecum, ascending colon, transverse colon, and descending colon grossly appeared to be within normal limits. Mucosa overlying the sigmoid and the rectum revealed some patchy mild inflammatory changes and biopsies were obtained. Some minimal diverticulosis was noted in the sigmoid colon. The scope was then retroflexed into the distal rectum and small internal hemorrhoids were noted, none of which was actively bleeding. The scope was then straightened out, it was subsequently withdrawn, and the patient tolerated the procedure well. IMPRESSION: 1. Proctosigmoiditis, mild, biopsies obtained. 2. Diverticulosis, minimal, sigmoid colon. 3. Internal hemorrhoids, none actively bleeding. PLAN: Follow up histology. Initiate high-fiber, low-fat diet. Initiate high-fiber supplement. The patient might benefit from a followup colonoscopy in 5 to 10 years. Jorje May MD [facility] [place] /[id number] cc: Federico Collins MD
== END | disposition home or self-care (01) ==
LOC: OR 09:58
PROVIDERS: ATTEND Internal Medicine Gastroenterology
DX: K63.89 Other specified diseases of intestine (principal); Z86.010 Personal history of colon polyps; K21.9 Gastro-esophageal reflux disease without esophagitis; K29.70 Gastritis, unspecified, without bleeding; K29.80 Duodenitis without bleeding; K44.9 Diaphragmatic hernia without obstruction or gangrene; K20.9 Esophagitis, unspecified; K58.9 Irritable bowel syndrome, unspecified; B19.10 Unspecified viral hepatitis B without hepatic coma; K57.30 Diverticulosis of large intestine without perforation or abscess without bleeding; K64.8 Other hemorrhoids; Z88.1 Allergy status to other antibiotic agents; Z88.2 Allergy status to sulfonamides; Z01.812 Encounter for preprocedural laboratory examination; Z11.59 Encounter for screening for other viral diseases
CPT/HCPCS: 36415; 43239; 45380; 85025; 88305; 88312; C9113; J1610; J2001; J2704; J2765; J3010; U0002; 45378

== ENCOUNTER 2020-01-22 11:58 | Outpatient (RCR) | payer MEDICARE, OTHER ==
[~2020-01-22 11:58] MED LIST changes: -FENTANYL CITRATE/PF 100MCG/2 ML INJ ONE; -GLUCAGON FOR INJ 1 MG VIAL ONE; -HYOSCYAMINE 0.125 MG TAB ONE; -LIDOCAINE HCL 2% LOCAL INJ 5 ML SDV VIAL INJ ONE; -METOCLOPRAMIDE HCL 10 MG/2ML VIAL ONE; -PANTOPRAZOLE 40 MG 10ML VIAL ONE; -PROPOFOL IV EMULSION 10 MG/ML 20 ML VIAL ONE
== END 2020-02-01 ==
LOC: ST 11:58
PROVIDERS: ATTEND Specialist
DX: R49.8 Other voice and resonance disorders (principal); R49.0 Dysphonia

== ENCOUNTER 2020-02-19 11:00 | Outpatient (RCR) | payer MEDICARE, OTHER ==
--- NOTE | 2020-02-05 15:16 | NUR ---
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 Short term goals and progress follow: 1.Pt will follow vocal hygiene recommendations with independence for improvement in vocal fold health for vocalizationpt reported following recommendations most of the time. She also recently started taking a PPI as prescribed by Dr. Jorje May after her EGD but has started to feel side effects including nausea, vomiting, and headache. Pt was encouraged to call and speak with her physician about these side effects before stopping the medication. 2.Pt will implement gentle use of voice with easy onset exercises with independencecontinued the Stretch and Flow technique for relaxed phonation. Pt required no assistance to use technique in long /h/ phrases or reading aloud. With guided practice, pt required minimal to no assistance to use technique in structured conversation. 3.Pt will complete exercises to increase loudness of speech without compromising functional and appropriate use of vocal cords with independencevocal function exercises were introduced and demonstrated. A home program was assigned. 4.Pt will complete home exercise program of stretches and practice of therapeutic stimuli with independencetransitional home program assigned and reviewed. Pt with questions. Written handouts were provided. 5.Pt will improve maximum phonation time to 15 secondspts average maximum phonation time was 11 seconds (baseline of 2.5 seconds). 6.Pt will increase sustained ah to an average of 80 dB while maintaining good vocal qualitypts average loudness for sustained ah was 77 dB (baseline of 71 dB). 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 Conversational speech presents with mild disorder characteristics, but during structured activities pts voice is more characteristic of a very mild voice disorder. Pt is very motivated to improve her vocal quality and completed all tasks requested. Education provided as indicated, with pt indicating understanding. Recommendations: 1.Speech therapy 1X/2 weeks X 4 weeks 2.Vocal hygiene program 3.GERD precautions Longterm Goal(s): Patient will restore vocal quality to perform functional demands of conversational and professional speech. Short Term Goals: 1.Pt will follow vocal hygiene recommendations with independence for improvement in vocal fold health for vocalization. 2.Pt will implement gentle use of voice with easy onset exercises with independence. 3.Pt will complete exercises to increase loudness of speech without compromising functional and appropriate use of vocal cords with independence. 4.Pt will complete home exercise program of stretches and practice of therapeutic stimuli with independence. 5.Pt will improve maximum phonation time to 15 seconds. 6.Pt will increase sustained ah to an average of 80 dB while maintaining good vocal quality. Thank you for including me in the care of your patient. Please do not hesitate to contact me at [phone] should you have any questions regarding this evaluation or the plan of care. Radha Archibald M.A. CCC-RETRIMMER Date of Session: 02/05/20 Voice therapy X 60 minutes N[facility] Voice Level 5
== END 2020-03-02 ==
LOC: ST 11:00
PROVIDERS: ATTEND Specialist
DX: R49.9 Unspecified voice and resonance disorder (principal); R49.0 Dysphonia; K21.9 Gastro-esophageal reflux disease without esophagitis

== ENCOUNTER → 2020-12-09 | Outpatient (CLI) | payer MEDICARE, OTHER ==
[~2020-12-09] MED LIST changes: +IOPAMIDOL 370 MG/ML 200 ML INFUS..BTL INJ ONE; +SODIUM CHLORIDE 0.9% 50ML 50 ML ONE
== END ==
LOC: CT 16:23
PROVIDERS: ATTEND Internal Medicine Gastroenterology
DX: R10.10 Upper abdominal pain, unspecified (principal); R19.5 Other fecal abnormalities
CPT/HCPCS: 74177; Q9967

== ENCOUNTER → 2020-12-15 | Outpatient (CLI) | payer MEDICARE, OTHER ==
[~2020-12-15] MED LIST changes: -IOPAMIDOL 370 MG/ML 200 ML INFUS..BTL INJ ONE; -SODIUM CHLORIDE 0.9% 50ML 50 ML ONE
== END ==
LOC: MRI 07:39
PROVIDERS: ATTEND Internal Medicine Gastroenterology
DX: R94.8 Abnormal results of function studies of other organs and systems (principal)
CPT/HCPCS: 74181

== ENCOUNTER → 2021-01-18 | Outpatient (CLI) | payer MEDICARE, OTHER | LOC: CT 15:29 | PROVIDERS: ATTEND Internal Medicine | DX: R91.8 Other nonspecific abnormal finding of lung field (principal) | CPT/HCPCS: 71250 ==

== ENCOUNTER → 2021-03-12 | Day surgery (SDC) | payer MEDICARE, OTHER ==
[2021-03-11 13:25] LABS: BASOPHILS % 0.5 % (0.0-1.0); EOSINOPHILS # (AUTO) 0.1 (0.0-0.4); EOSINOPHILS % 0.7 % (0.0-6.0); HEMOGLOBIN 12.5 g/dL (12.0-16.0); LYMPHOCYTES # (AUTO) 2.7 (1.0-3.2); LYMPHOCYTES % 35.1 % (18.0-39.1); MEAN CORPUSCULAR HEMOGLOBIN 29.7 pg (28-32); MEAN CORPUSCULAR HGB CONC 31.3 g/dL (31-35); MONOCYTES # (AUTO) 0.6 (0.2-0.8); MONOCYTES % 7.9 % (4.4-11.3); NEUTROPHILS # (AUTO) 4.3 (2.1-6.9); NEUTROPHILS % 55.5 % (38.7-80.0); PLATELET COUNT 180 x10e3/uL (140-360); RED BLOOD COUNT 4.21 x10e6/uL (3.6-5.1); RED CELL DISTRIBUTION WIDTH 13.5 % (11.7-14.4)
[~2021-03-12] MED LIST changes: +FENTANYL CITRATE/PF 100MCG/2 ML INJ ONE; +LIDOCAINE HCL 2% LOCAL INJ 5 ML SDV VIAL INJ ONE; +PROPOFOL IV EMULSION 10 MG/ML 20 ML VIAL ONE; +SUCRALFATE1 GM PO
[2021-03-12 17:19] VITALS: BP 123/75
[2021-03-16 05:11] LABS: ENDOMYSIAL ANTIBODIES, IGA Negative (Negative)
== END | disposition home or self-care (01) ==
LOC: OR 13:04
PROVIDERS: ATTEND Internal Medicine Gastroenterology
DX: K29.50 Unspecified chronic gastritis without bleeding (principal); K44.9 Diaphragmatic hernia without obstruction or gangrene; K92.0 Hematemesis; K21.9 Gastro-esophageal reflux disease without esophagitis; K57.90 Diverticulosis of intestine, part unspecified, without perforation or abscess without bleeding; K58.9 Irritable bowel syndrome, unspecified; R19.7 Diarrhea, unspecified; I10 Essential (primary) hypertension; Z88.1 Allergy status to other antibiotic agents; Z88.2 Allergy status to sulfonamides; Z01.810 Encounter for preprocedural cardiovascular examination; Z01.812 Encounter for preprocedural laboratory examination; Z20.822 Contact with and (suspected) exposure to COVID-19; Z79.899 Other long term (current) drug therapy
CPT/HCPCS: 36415; 43239; 82784; 83516; 85025; 86256; 88305; 88312; 93005; C9113; J2001; J2704; J3010; U0002

== ENCOUNTER → 2021-03-16 | Outpatient (CLI) | payer MEDICARE, OTHER ==
[~2021-03-16] MED LIST changes: -FENTANYL CITRATE/PF 100MCG/2 ML INJ ONE; -LIDOCAINE HCL 2% LOCAL INJ 5 ML SDV VIAL INJ ONE; -PROPOFOL IV EMULSION 10 MG/ML 20 ML VIAL ONE
== END ==
LOC: MRI 09:40
PROVIDERS: ATTEND Internal Medicine
DX: M54.32 Sciatica, left side (principal)
CPT/HCPCS: 72148

== ENCOUNTER → 2021-06-11 | Outpatient (CLI) | payer MEDICARE, OTHER | LOC: DX 08:43 | PROVIDERS: ATTEND Internal Medicine Gastroenterology | DX: K52.9 Noninfective gastroenteritis and colitis, unspecified (principal); Z20.822 Contact with and (suspected) exposure to COVID-19 | CPT/HCPCS: 74250; U0002 ==

== ENCOUNTER 2022-05-09 12:22 | Emergency (ER) | payer MEDICARE, OTHER ==
[~2022-05-09] VITALS: Ht 154.9 cm; Wt 45.4 kg
[2022-05-09] MEDS ORDERED: SODIUM CHLORIDE 0.9% 1000ML 500 ML IV ONE (12:45)
[2022-05-09 13:01] LABS: BASOPHILS % 0.4 % (0.0-1.0); EOSINOPHILS # (AUTO) 0.1 (0.0-0.4); EOSINOPHILS % 0.7 % (0.0-6.0); HEMATOCRIT 41.1 % (34.2-44.1); HEMOGLOBIN 12.5 g/dL (12.0-16.0); LYMPHOCYTES # (AUTO) 2.6 (1.0-3.2); LYMPHOCYTES % 34.9 % (18.0-39.1); MEAN CORPUSCULAR HEMOGLOBIN 29.8 pg (28-32); MEAN CORPUSCULAR HGB CONC 30.4 g/dL (31-35); MEAN CORPUSCULAR VOLUME 97.9 fL (81-99); MONOCYTES # (AUTO) 0.5 (0.2-0.8); MONOCYTES % 6.7 % (4.4-11.3); NEUTROPHILS # (AUTO) 4.3 (2.1-6.9); NEUTROPHILS % 57.2 % (38.7-80.0); PLATELET COUNT 173 x10e3/uL (140-360); RED CELL DISTRIBUTION WIDTH 13.3 % (11.7-14.4)
[2022-05-09 13:17] LABS: INR 1.12; PROTHROMBIN TIME 14.6 seconds (11.9-14.5)
[2022-05-09 14:35] LABS: CLARITY,URINE SL CLOUDY (CLEAR); COLOR,URINE AMBER (YELLOW); KETONES,URINE NEGATIVE (NEGATIVE); LEUKOCYTE ESTERASE ,URINE NEGATIVE (NEGATIVE); NITRITE,URINE NEGATIVE (NEGATIVE); PROTEIN,URINE DIPSTICK NEGATIVE (NEGATIVE); URINE UROBILINOGEN 0.2 mg/dL (0.2 - 1)
[2022-05-09 14:50] LABS: BACTERIA,URINE MODERATE /HPF; EPITHELIAL CELLS,URINE FEW /LPF
[2022-05-09 14:56] LABS: ALANINE AMINOTRANSFERASE 16 IU/L (0-55); ALBUMIN 3.5 g/dL (3.5-5.0); ALBUMIN/GLOBULIN RATIO 1.2 (0.8-2.0); ALKALINE PHOSPHATASE 69 IU/L (40-150); ANION GAP 14.3 mmol/L (8-16); BLOOD UREA NITROGEN 21 mg/dL (7-26); BUN/CREATININE RATIO 20 (6-25); CALCIUM 8.9 mg/dL (8.4-10.2); CARBON DIOXIDE 25 mmol/L (22-29); CHLORIDE 105 mmol/L (98-107); CREATINE KINASE 167 IU/L (29-168); CREATININE, SERUM 1.07 mg/dL (0.57-1.11); GLUCOSE 98 mg/dL (74-118); POTASSIUM 4.3 mmol/L (3.5-5.1); SODIUM 140 mmol/L (136-145)
[2022-05-09 16:59] VITALS: BP 127/84
== END 2022-05-09 16:18 | disposition home or self-care (01) ==
LOC: ER 12:29
DX: R53.1 Weakness (principal); R42 Dizziness and giddiness; I10 Essential (primary) hypertension; E03.9 Hypothyroidism, unspecified; Z87.19 Personal history of other diseases of the digestive system; R94.31 Abnormal electrocardiogram [ECG] [EKG]
CPT/HCPCS: 36415; 71045; 80053; 81001; 82550; 82553; 82948; 84484; 85025; 85610; 87086; 93005; 99284; J7030

== ENCOUNTER → 2023-11-03 | Day surgery (SDC) | payer MEDICARE, OTHER ==
[~2023-11-03] MED LIST changes: +CALCIUM; +MULTI-VITAMIN1 EACH PO; +PROBIOTIC PO; +PROPOFOL IV EMULSION 50 ML IV ONE; +VITAMIN D31250 MCG
[2023-11-03] MEDS: LACTATED RINGER'S 1,000 ML ONE (15:05)
[2023-11-03 17:25] VITALS: BP 151/83; PULSE 83; RESP 13; TEMP 97.3; O2SAT 98
== END | disposition home or self-care (01) ==
LOC: ENDO 14:13
PROVIDERS: ATTEND Internal Medicine Gastroenterology
DX: K22.2 Esophageal obstruction (principal); K29.70 Gastritis, unspecified, without bleeding; K31.89 Other diseases of stomach and duodenum; K44.9 Diaphragmatic hernia without obstruction or gangrene; Z71.3 Dietary counseling and surveillance; R63.0 Anorexia; R05.9 Cough, unspecified; I10 Essential (primary) hypertension; Z71.89 Other specified counseling; Z86.16 Personal history of COVID-19
CPT/HCPCS: 43239; 43450; J2470; J2704; J7121

== ENCOUNTER 2024-07-25 11:00 | Outpatient (RCR) | payer MEDICARE, OTHER ==
[~2024-07-25 11:00] MED LIST changes: -PROPOFOL IV EMULSION 50 ML IV ONE
== END 2024-07-31 ==
LOC: PT 11:00
PROVIDERS: ATTEND Orthopaedic Surgery
DX: M25.552 Pain in left hip (principal); M71.552 Other bursitis, not elsewhere classified, left hip